=== PATIENT | female | born 1965 | race African-American/Black ===

== ENCOUNTER 2023-09-12 15:03 | Outpatient (CLI) | payer BC | END 2023-09-12 15:04 | disposition home or self-care (01) | LOC: CSHMRI 15:03 | PROVIDERS: ATTEND Internal Medicine | DX: M54.2 Cervicalgia (principal); G89.29 Other chronic pain; R20.0 Anesthesia of skin; Z98.1 Arthrodesis status | CPT/HCPCS: 72141 ==